=== PATIENT | female | born 1970 | race Caucasian/White ===

== ENCOUNTER 2018-02-13 23:10 | Emergency (ER) | payer MEDICAID ==
[~2018-02-13] VITALS: Ht 170.2 cm; Wt 85.4 kg
[2018-02-13 23:17] VITALS: BP 131/94
[2018-02-13] MEDS ORDERED: [UNRECOGNIZED DRUG - REMARK] (23:35)
[2018-02-13] MEDS ORDERED: CLON-528 PO (23:35)
[2018-02-14] MEDS ORDERED: CEPH250T PO (00:11)
[2018-02-14] MEDS ORDERED: DOXY100C43 PO (00:11)
[2018-02-14] MEDS: DOXYCYCLINE 100MG CAPSULE PO STA (00:31)
[2018-02-14] MEDS: ondansetron 4mg rapidly disintigrating tab PO ONE (00:31)
[2018-02-14] MEDS: cephalexin 250mg capsule PO ONE (00:31)
== END 2018-02-14 00:33 | disposition home or self-care (01) ==
LOC: ER 23:11
DX: S61.552A Open bite of left wrist, initial encounter (principal); S61.532A Puncture wound without foreign body of left wrist, initial encounter; L03.114 Cellulitis of left upper limb; F15.90 Other stimulant use, unspecified, uncomplicated; Z90.49 Acquired absence of other specified parts of digestive tract; Z98.84 Bariatric surgery status; W54.0XXA Bitten by dog, initial encounter; Y93.89 Activity, other specified; Y92.89 Other specified places as the place of occurrence of the external cause; Y99.8 Other external cause status
CPT/HCPCS: 73110; 99284

== ENCOUNTER 2018-07-23 13:11 | Emergency (ER) | payer MEDICAID ==
[~2018-07-23] VITALS: Ht 170.2 cm; Wt 86.4 kg
[~2018-07-23 13:11] MED LIST: CEPH250T PO; CLON-528 PO; [UNRECOGNIZED DRUG - REMARK]
[2018-07-23 13:12] VITALS: BP 130/85
== END 2018-07-23 13:37 | disposition home or self-care (01) ==
LOC: ER 13:11
DX: M25.561 Pain in right knee (principal); F15.90 Other stimulant use, unspecified, uncomplicated; Z90.49 Acquired absence of other specified parts of digestive tract; Z98.51 Tubal ligation status; Z79.899 Other long term (current) drug therapy
CPT/HCPCS: 99284

== ENCOUNTER 2018-12-04 14:23 | Emergency (ER) | payer MEDICAID ==
[~2018-12-04] VITALS: Ht 170.2 cm; Wt 93.2 kg
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
[2018-12-04 15:28] LABS: CLARITY,URINE SLIGHTLY CLOUDY (Clear); COLOR,URINE YELLOW (Yellow); GLUCOSE, URINE NEGATIVE (Neg); KETONES,URINE TRACE mg/dl (Neg); LEUKOCYTE ESTERASE ,URINE SMALL (Neg); NITRITES, URINE NEGATIVE (Neg); OCCULT BLOOD,URINE NEGATIVE (Neg); PH,URINE 5.5 (4.8-8.0); PROTEIN,URINE NEGATIVE (Neg); UROBILINOGEN,URINE 0.2 E.U/dL (0.2-1.0)
[2018-12-04 15:29] LABS: UA COLLECTION TYPE VOIDED
[2018-12-04] MEDS ORDERED: CEPH250T PO (15:34)
[2018-12-04 15:40] LABS: WBC,URINE TNTC /HPF (0-4)
[2018-12-04 15:41] LABS: BACTERIA,URINE FEW /HPF (Neg); MUCUS STRANDS FEW /LPF (Neg); RBC,URINE NONE SEEN /HPF (0-2); SQUAMOUS EPITHELIAL CELL,UR FEW /LPF (FEW)
[2018-12-04 15:49] VITALS: BP 90/51
== END 2018-12-04 15:51 | disposition home or self-care (01) ==
LOC: ER 14:23
DX: N39.0 Urinary tract infection, site not specified (principal); F10.99 Alcohol use, unspecified with unspecified alcohol-induced disorder; F15.90 Other stimulant use, unspecified, uncomplicated; Z90.49 Acquired absence of other specified parts of digestive tract; Z98.84 Bariatric surgery status; Z79.899 Other long term (current) drug therapy; Y90.9 Presence of alcohol in blood, level not specified
CPT/HCPCS: 81001; 87088; 99283

== ENCOUNTER 2018-12-31 16:35 | Emergency (ER) | payer MEDICAID ==
[~2018-12-31] VITALS: Ht 172.7 cm; Wt 90.0 kg
[2018-12-31] MEDS ORDERED: methylPREDNISolone sod succ 125mg/2ml vial IV ONE (16:50)
[2018-12-31] MEDS ORDERED: normal saline 1000ML IV soln IVB ONE (16:50)
[2018-12-31] MEDS ORDERED: ipratropium/albuterol 3ml nebule NEB ONE (16:50)
[2018-12-31 17:09] LABS: BASOPHILS % (AUTO) 0.6 % (0-1); EOSINOPHILS # (AUTO) 0.2 X10'3 (0-0.9); EOSINOPHILS % (AUTO) 2.6 % (0-6); HEMATOCRIT 26.1 % (35.0-45.0); HEMOGLOBIN 8.4 g/dl (12.0-16.0); LYMPHOCYTES # (AUTO) 1.8 X10'3 (1.1-4.8); LYMPHOCYTES % (AUTO) 30.3 % (21-51); MEAN CORPUSCULAR HEMOGLOBIN 21.7 PG (27.0-31.0); MEAN CORPUSCULAR HGB CONC 32.1 g/dL (33.0-36.5); MEAN CORPUSCULAR VOLUME 67.8 FL (78-98); MEAN PLATELET VOLUME 7.5 FL (7.4-10.4); MONOCYTES # (AUTO) 0.6 X10'3 (0-0.9); MONOCYTES % (AUTO) 10.2 % (2-12); NEUTROPHILS # (AUTO) 3.4 X10'3 (1.8-7.7); NEUTROPHILS % (AUTO) 56.3 % (42-75); PLATELET COUNT 248 X10'3 (140-440); RED BLOOD COUNT 3.86 X10'6 (4.20-5.60); RED CELL DISTRIBUTION WIDTH 19.1 % (11.5-14.5)
[2018-12-31 17:24] LABS: ALANINE AMINOTRANSFERASE 31 U/L (12-78); ALBUMIN/GLOBULIN RATIO 0.7 (1.1-1.5); ALKALINE PHOSPHATASE 89 IU/L (46-116); ANION GAP 7 (8-16); ASPARTATE AMINO TRANSFERASE 24 U/L (10-37); BILIRUBIN,TOTAL 0.3 MG/DL (0.1-1.0); BLOOD UREA NITROGEN 10 MG/DL (7-18); BUN/CREATININE RATIO 10.8 (6.6-38.0); CALCIUM 8.7 MG/DL (8.5-10.1); CHLORIDE 106 MMOL/L (99-107); CREATININE 0.93 MG/DL (0.40-0.90); GLUCOSE 88 MG/DL (70-104); POTASSIUM 4.2 MMOL/L (3.5-5.1); SODIUM 141 MMOL/L (135-145); TOTAL CARBON DIOXIDE 27.9 MMOL/L (24-32); TOTAL PROTEIN 7.2 G/DL (6.4-8.2); eGFR 64 ML/MIN
[2018-12-31 17:28] LABS: PLATELET ESTIMATE NORMAL
[2018-12-31 17:29] LABS: ANISOCYTOSIS 2+; HYPOCHROMASIA 1+; LARGE PLATELETS FEW; MICROCYTOSIS 2+; POLYCHROMASIA FEW
[2018-12-31] MEDS ORDERED: ALBU6.7H9 INH (17:30)
[2018-12-31] MEDS ORDERED: PRED20TA PO (17:30)
[2018-12-31] MEDS ORDERED: GUAI120015 PO (17:30)
[2018-12-31] MEDS ORDERED: AMOX-419 PO (17:30)
[2018-12-31 18:18] VITALS: BP 131/73
== END 2018-12-31 18:54 | disposition home or self-care (01) ==
LOC: ER 16:35
DX: J40 Bronchitis, not specified as acute or chronic (principal); D64.89 Other specified anemias; F15.90 Other stimulant use, unspecified, uncomplicated; F17.200 Nicotine dependence, unspecified, uncomplicated; Z90.49 Acquired absence of other specified parts of digestive tract; Z87.01 Personal history of pneumonia (recurrent); Z98.84 Bariatric surgery status; Z79.899 Other long term (current) drug therapy
CPT/HCPCS: 36415; 71045; 80053; 82948; 85025; 93005; 94640; 94760; 96374; 99284; J2930; J7030

== ENCOUNTER 2019-09-05 09:06 | Emergency (ER) | payer MEDICAID ==
[~2019-09-05] VITALS: Ht 170.2 cm; Wt 104.5 kg
[~2019-09-05 09:06] MED LIST changes: +ALBU6.7H9 INH; -CEPH250T PO; +GUAI120015 PO
[2019-09-05 10:10] LABS: BASOPHILS % (AUTO) 0.6 % (0-1); EOSINOPHILS # (AUTO) 0.1 X10'3 (0-0.9); EOSINOPHILS % (AUTO) 2.3 % (0-6); HEMATOCRIT 25.5 % (35.0-45.0); HEMOGLOBIN 7.8 g/dl (12.0-16.0); LYMPHOCYTES # (AUTO) 1.8 X10'3 (1.1-4.8); MEAN CORPUSCULAR HEMOGLOBIN 19.8 PG (27.0-31.0); MEAN CORPUSCULAR HGB CONC 30.5 g/dL (33.0-36.5); MEAN CORPUSCULAR VOLUME 64.8 FL (78-98); MEAN PLATELET VOLUME 8.4 FL (7.4-10.4); MONOCYTES # (AUTO) 0.6 X10'3 (0-0.9); MONOCYTES % (AUTO) 10.1 % (2-12); NEUTROPHILS # (AUTO) 3.3 X10'3 (1.8-7.7); PLATELET COUNT 222 X10'3 (140-440); RED BLOOD COUNT 3.93 X10'6 (4.20-5.60); RED CELL DISTRIBUTION WIDTH 19.5 % (11.5-14.5); WHITE BLOOD COUNT 5.9 X10'3 (4.5-11.0)
[2019-09-05 10:12] LABS: CLARITY,URINE SLIGHTLY CLOUDY (Clear); COLOR,URINE YELLOW (Yellow); GLUCOSE, URINE NEGATIVE (Neg); KETONES,URINE NEGATIVE (Neg); LEUKOCYTE ESTERASE ,URINE NEGATIVE (Neg); NITRITES, URINE NEGATIVE (Neg); OCCULT BLOOD,URINE NEGATIVE (Neg); PH,URINE 6.5 (4.8-8.0); PROTEIN,URINE NEGATIVE (Neg)
[2019-09-05 10:16] LABS: UA COLLECTION TYPE CLN CATCH MIDSTREAM
[2019-09-05 10:17] LABS: MUCUS STRANDS MODERATE /LPF (Neg); SQUAMOUS EPITHELIAL CELL,UR MODERATE /LPF (FEW)
[2019-09-05 10:18] LABS: BACTERIA,URINE 1+ /HPF (Neg)
[2019-09-05 10:19] LABS: RBC,URINE 0-2 /HPF (0-2); WBC,URINE 0-4 /HPF (0-4)
[2019-09-05 10:23] LABS: ALANINE AMINOTRANSFERASE 24 U/L (12-78); ALBUMIN 2.8 G/DL (3.4-5.0); ALBUMIN/GLOBULIN RATIO 0.7 (1.1-1.5); ALKALINE PHOSPHATASE 86 IU/L (46-116); ANION GAP 7 (8-16); ASPARTATE AMINO TRANSFERASE 21 U/L (10-37); BILIRUBIN,TOTAL 0.2 MG/DL (0.1-1.0); BLOOD UREA NITROGEN 19 MG/DL (7-18); BUN/CREATININE RATIO 24.4 (6.6-38.0); CALCIUM 8.3 MG/DL (8.5-10.1); CHLORIDE 110 MMOL/L (99-107); CREATININE 0.78 MG/DL (0.40-0.90); GLUCOSE 81 MG/DL (70-104); POTASSIUM 3.9 MMOL/L (3.5-5.1); SODIUM 143 MMOL/L (135-145); TOTAL CARBON DIOXIDE 26.3 MMOL/L (24-32); TOTAL PROTEIN 6.9 G/DL (6.4-8.2); eGFR 78 ML/MIN
[2019-09-05 10:36] LABS: ANISOCYTOSIS 2+; MICROCYTOSIS 2+; PLATELET ESTIMATE NORMAL; POLYCHROMASIA 1+
[2019-09-05] MEDS: acetaminophen 325mg tablet PO ONE ×2 (10:36→11:03)
[2019-09-05] MEDS ORDERED: FURO-150 PO (10:53)
[2019-09-05] MEDS ORDERED: POTA10TA19 PO (10:53)
[2019-09-05 11:15] VITALS: BP 122/80
== END 2019-09-05 11:18 | disposition home or self-care (01) ==
LOC: ER 09:07
DX: R60.9 Edema, unspecified (principal); M79.10 Myalgia, unspecified site; M79.605 Pain in left leg; M79.604 Pain in right leg; J44.9 Chronic obstructive pulmonary disease, unspecified; F15.90 Other stimulant use, unspecified, uncomplicated; Z90.49 Acquired absence of other specified parts of digestive tract; Z98.0 Intestinal bypass and anastomosis status; Z79.899 Other long term (current) drug therapy
CPT/HCPCS: 36415; 71045; 80053; 81001; 83880; 84484; 85025; 93005; 99285

== ENCOUNTER 2021-04-26 15:23 | Inpatient (IN) | payer MEDICAID ==
[~2021-04-26] VITALS: Ht 170.2 cm; Wt 84.9 kg
--- NOTE | 2021-04-26 16:50 | NUR ---
ADMITS TO TAKING METH LAST TUESDAY NIGHT
--- NOTE | 2021-04-26 16:59 | NUR ---
PT STATES, "MY CLOTHES ARE FIFTHY FROM HIDING IN THE BUSHES FROM PEOPLE CHASING ME. PT HAVING FLIGHT OF IDEAS, AND TALKING EXTREMELY FAST."
--- NOTE | 2021-04-26 17:10 | NUR ---
PT STATES, "ILL SAY ANYTHING TO STAY HERE"
[2021-04-26 18:24] LABS: BASOPHILS % (AUTO) 0.3 % (0-1); EOSINOPHILS # (AUTO) 0.1 X10'3 (0-0.9); EOSINOPHILS % (AUTO) 1.2 % (0-6); HEMATOCRIT 28.9 % (35.0-45.0); HEMOGLOBIN 9.3 g/dl (12.0-16.0); LYMPHOCYTES # (AUTO) 1.6 X10'3 (1.1-4.8); LYMPHOCYTES % (AUTO) 25.8 % (21-51); MEAN CORPUSCULAR HEMOGLOBIN 21.9 PG (27.0-31.0); MEAN CORPUSCULAR HGB CONC 32.1 g/dL (33.0-36.5); MEAN CORPUSCULAR VOLUME 68.2 FL (78-98); MEAN PLATELET VOLUME 7.8 FL (7.4-10.4); MONOCYTES # (AUTO) 0.6 X10'3 (0-0.9); MONOCYTES % (AUTO) 9.4 % (2-12); NEUTROPHILS % (AUTO) 63.3 % (42-75); PLATELET COUNT 252 X10'3 (140-440); RED BLOOD COUNT 4.23 X10'6 (4.20-5.60); RED CELL DISTRIBUTION WIDTH 19.3 % (11.5-14.5); WHITE BLOOD COUNT 6.2 X10'3 (4.5-11.0)
[2021-04-26 18:32] LABS: ALANINE AMINOTRANSFERASE 33 U/L (12-78); ALBUMIN 3.2 G/DL (3.4-5.0); ALBUMIN/GLOBULIN RATIO 0.9 (1.1-1.5); ALKALINE PHOSPHATASE 74 IU/L (46-116); ANION GAP 8 (8-16); ASPARTATE AMINO TRANSFERASE 26 U/L (10-37); BILIRUBIN,TOTAL 0.3 MG/DL (0.1-1.0); BLOOD UREA NITROGEN 14 MG/DL (7-18); BUN/CREATININE RATIO 16.9 (6.6-38.0); CALCIUM 8.9 MG/DL (8.5-10.1); CHLORIDE 104 MMOL/L (99-107); CREATININE 0.83 MG/DL (0.40-0.90); GLUCOSE 79 MG/DL (70-104); POTASSIUM 3.4 MMOL/L (3.5-5.1); SODIUM 138 MMOL/L (135-145); TOTAL CARBON DIOXIDE 26.3 MMOL/L (24-32); TOTAL PROTEIN 6.8 G/DL (6.4-8.2); eGFR 72 ML/MIN
[2021-04-26 18:41] LABS: ETHANOL < 0.010 GM/DL (0.0-0.010)
[2021-04-26] MEDS ORDERED: potassium Cl 20 mEq SR tablet PO STA (18:42)
[2021-04-26 19:10] LABS: PLATELET ESTIMATE NORMAL
[2021-04-26 19:11] LABS: ANISOCYTOSIS 2+; ELLIPTOCYTES FEW; MICROCYTOSIS 2+; POLYCHROMASIA FEW
[2021-04-26 19:28] LABS: URINE AMPHETAMINE SCREEN POSITIVE (Neg); URINE BARBITUATE SCREEN NEGATIVE (Neg); URINE BENZODIAZEPINES SCREEN POSITIVE (Neg); URINE CANNABINOID SCREEN POSITIVE (Neg); URINE COCAINE SCREEN NEGATIVE (Neg); URINE METHADONE SCREEN NEGATIVE (Neg); URINE OPIATE SCREEN NEGATIVE (Neg); URINE PHENCYCLIDINE SCREEN NEGATIVE (Neg)
--- NOTE | 2021-04-26 19:37 | NUR ---
The patient moved to bed 23 from the main ER. She is accepting redirection but she is very disorganized with fast pressured speech. She has significant psychomotor agitation. She is a very poor historian but she is making statements about coming from [facility] in her car which is now broken down somewhere in [facility]. She reports recent meth use, recently being in [facility] and a past diagnosis of PTSD. 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
[2021-04-26] MEDS ORDERED: LORazepam 1 MG tablet PO ONE (20:20)
[2021-04-26] MEDS ORDERED: OLANZapine 2.5MG tablet PO ONE (20:20)
[2021-04-26] MEDS ORDERED: diphenhydrAMINE 25mg capsule PO ONE (20:20)
--- NOTE | 2021-04-26 20:42 | NUR ---
Patient's daughter, Angela,
--- NOTE | 2021-04-26 22:38 | NUR ---
The patient appears to be sleeping
--- NOTE | 2021-04-27 00:43 | NUR ---
The patient appears to be sleeping
--- NOTE | 2021-04-27 02:02 | NUR ---
The patient appears to be sleeping
--- NOTE | 2021-04-27 04:46 | NUR ---
The patient appears to be sleeping
--- NOTE | 2021-04-27 05:32 | NUR ---
Packet sent to [facility]
--- NOTE | 2021-04-27 07:11 | NUR ---
Pt. appears to be sleeping, no s/sx of distress noted.
--- NOTE | 2021-04-27 09:11 | NUR ---
Pt. awake ambulating to the bathroom, mumbling to herself, no distress noted.
--- NOTE | 2021-04-27 11:11 | NUR ---
Pt. awake speaking to [facility] at the bedside, she is upset crying and bilateral feet bouncing.
--- NOTE | 2021-04-27 13:10 | NUR ---
Pt. appears to be sleeping, no distress noted.
[2021-04-27] MEDS ORDERED: acetaminophen 325mg tablet PO PRN (15:30)
[2021-04-27] MEDS ORDERED: NICOTINE POLACRILEX 2 MG LOZENGE BC PRN (15:30)
[2021-04-27] MEDS ORDERED: nicotine 14mg patch - 24hr TD ONE (15:30)
[2021-04-27] MEDS ORDERED: loperamide 2mg capsule PO PRN (15:30)
[2021-04-27] MEDS ORDERED: magnesium hydroxide 30ml (MOM) UD suspension PO PRN (15:30)
--- NOTE | 2021-04-27 15:30 | NUR ---
Pt. discharged to [facility] ar 1530 via WC, all belongings were taken with pt.
--- NOTE | 2021-04-27 15:35 | NUR ---
inspector Note: Patient admitted from [facility] ED for DTS. Patient had custody of her nephew since , a 17 month old. CPS took the baby away from her last week. Patient went on a meth binge after her loss. Patient feeling suicidal and thought of jumping in front of a train. Patient was tearful every time she spoke of her nephew and several times during the admission process.
[2021-04-27 16:54] VITALS: BP 123/60
[2021-04-27 20:22] VITALS: BP 96/59
[2021-04-27] MEDS ORDERED: traZODone 50mg tablet PO PRN (21:25)
[2021-04-27] MEDS ORDERED: LORazepam 0.5 MG tablet PO PRN (21:25)
--- NOTE | 2021-04-28 05:07 | NUR ---
Nursing Progress Note Legal hold: 5150 Client on involuntary status for GD Report received from Joseph RN with use of SBAR Why they are here: Client placed on 5150 hold as result of mental health disorder. She stated, "if I leave here, I'm going to on way or another, or I'll just run into the street. Assessment What has happened this shift: The patient was asleep at shift change. She has remained in her room all night. Attempted 1:1, but patient declines, stating she just needs to sleep right now. Patient had no scheduled medications, and declined snacks. SI/HI: Denies A/VH: Denies Sleep: See sleep hours ADL's: Independent Group attendance: No Were Meds taken: None scheduled Any med S/E: None observed or reported Mental Status Exam Appearance: Disheveled, but casual in scrubs Eye contact: Good Behavior: Guarded, withdrawn, paranoid. Speech: Clear, audible, Mood: Depressed Affect: Congruent Thought process: disorganized, delusional Thought Content: Wanting to go home Cognition: A/O X 3 Insight: Poor Judgment: Poor Interventions PRN's used: None Therapeutic interventions: 1:1 assessment, therapeutic communication, active listening, medication administration/education/monitoring, provided simple, clear directions, behavior monitoring and intervention; frequent reality orientation, distraction, and redirection, positive reinforcement, and Q 15 minute safety checks. Restraints/seclusion/emergency medication: None Justification of Continued Inpatient Treatment: Patient will need medication adjustment and monitoring in a safe and therapeutic environment.
[2021-04-28 08:00] VITALS: BP 160/80
[2021-04-28] MEDS: nicotine 14mg patch - 24hr TD SCH (08:56)
[2021-04-28] MEDS ORDERED: NO HOME MEDS (11:46)
[2021-04-28 13:55] LABS: CHOL/HDL RATIO 2.9 (0.00-4.99); CHOLESTEROL 186 MG/DL (0-200); HDL CHOLESTEROL 64 MG/DL (35-60); LDL CHOLESTEROL 91 MG/DL (50-100); TRIGLYCERIDES 94 MG/DL (20-135)
[2021-04-28 14:16] LABS: HEMOGLOBIN A1C 5.9 % (4.5-6.2)
--- NOTE | 2021-04-28 17:31 | NUR ---
Nursing Progress Note Legal hold: 5150 Client on involuntary status for GD Report received from RN with use of SBAR Why they are here: Client placed on 5150 hold as result of mental health disorder. She stated, "if I leave here, I'm going to on way or another, or I'll just run into the street. Assessment What has happened this shift: Received Pt in bed sleeping w/o distress at the beginning of the shift. Pt woke and cooperative with vitals. Pt returned to sleep and woke for breakfast and ate well. Pt took only AM med which was Nicotine patch. Pt reports depression maybe I need an antidepressant. Pt stated I just want to sleep. Pt ate lunch well and met with Dr Jansen. Pt spent most of afternoon in bed. SI/HI: Denies A/VH: Denies Sleep: Napped ADL's: Independent Group attendance: No Were Meds taken: Yes Any med S/E: None observed or reported Mental Status Exam Appearance: Casual in scrubs Eye contact: Good Behavior: Guarded, withdrawn Speech: Clear, coherent Mood: Depressed Affect: Congruent Thought process: Thought Content: Going home Cognition: A/O X 3 Insight: Poor Judgment: Poor Interventions PRN's used: None Therapeutic interventions: 1:1 assessment, therapeutic communication, active listening, medication administration/education/monitoring, provided simple, clear directions, behavior monitoring and intervention; frequent reality orientation, distraction, and redirection, positive reinforcement, and Q 15 minute safety checks. Restraints/seclusion/emergency medication: None Justification of Continued Inpatient Treatment: Patient will need medication adjustment and monitoring in a safe and therapeutic environment.
[2021-04-28] MEDS: OLANZapine 2.5MG tablet PO SCH (20:10)
[2021-04-28 20:56] VITALS: BP 114/58
[2021-04-28] MEDS: LORazepam 0.5 MG tablet PO PRN (21:21)
--- NOTE | 2021-04-29 03:31 | NUR ---
Nursing Progress Note Legal hold: 5150 Client on involuntary status for GD Report received from TEODORA Barkley with use of SBAR Why they are here: Client placed on 5150 hold as result of mental health disorder. She stated, "if I leave here, I'm going to one way or another, or I'll just run into the street. Assessment What has happened this shift: Patient was napping at shift change. She's irritable and just wants to sleep. Patient asks for Milk, and it was provided. She was asked, but declined to get up and talk or go to snack. Patient asked about her medications, and told Doctor was starting her on Zyprexa. She was fine with it and took her HS meds. Patient has been observed sleeping peacefully all night. SI/HI: Denies A/VH: Denies Sleep: See sleep hours ADL's: Independent Group attendance: No Were Meds taken: Yes Any med S/E: None observed or reported Mental Status Exam Appearance: Disheveled, but casual in scrubs Eye contact: Good Behavior: Guarded, withdrawn, paranoid. Speech: Clear, audible, Mood: Depressed Affect: Congruent Thought process: disorganized, delusional Thought Content: Wanting to go home Cognition: A/O X 3 Insight: Poor Judgment: Poor Interventions PRN's used: None Therapeutic interventions: 1:1 assessment, therapeutic communication, active listening, medication administration/education/monitoring, provided simple, clear directions, behavior monitoring and intervention; frequent reality orientation, distraction, and redirection, positive reinforcement, and Q 15 minute safety checks. Restraints/seclusion/emergency medication: None Justification of Continued Inpatient Treatment: Patient will need medication adjustment and monitoring in a safe and therapeutic environment.
[2021-04-29 08:00] VITALS: BP 96/47
[2021-04-29] MEDS: nicotine 14mg patch - 24hr TD SCH (08:25)
--- NOTE | 2021-04-29 09:00 | NUR ---
Fleet Administrator met w/pt @ bedside and engaged her in completing her bio-psychosocial assessment. Pt appears to be lethargic and was limited w/response to questions however, she does go off topic quite a bit appears to blame others for CPS removal of her nephew. Pt refused to sign DOROTHY & # 9. Clinician will attempt to engage pt in SBIRT tomorrow. Lashay Harry lCSW Addendum: 04/30/21 at 0903 by Lashay Harry SS Amended: Links added.
[2021-04-29 14:15] VITALS: BP 132/81
--- NOTE | 2021-04-29 17:22 | NUR ---
Nursing Progress Note: Beverly NgoCourtney Legal hold: 5150 Client on involuntary status for GD Report received from TEODORA Ramos with use of SBAR Why they are here: Client placed on 5150 hold as result of mental health disorder. She stated, "if I leave here, I'm going to one way or another, or I'll just run into the street. Assessment What has happened this shift: Received Pt sleeping, woke to take her nicotine patch, and 1:1 assessment completed at the bedside. Pt. denies SI, HI, and A/VH. She reports she was admitted because anxiety, addiction, being unsafe out there Discussed her plans for discharge and she stated I dont have a plan, I want to get out of [facility]. Pt. did not get OOB for breakfast, she reported Im too tired pt. was encouraged to drink extra fluids d/t hypotension: provider notified. Pt. was rechecked and BP WNL. Pt. was encouraged to participate in group, but refused. Pt. did get OOB and eat lunch. SI/HI: Denies A/VH: Denies Sleep: Napped all shift intermittently ADL's: Independent Group attendance: No Were Meds taken: Yes Any med S/E: None observed or reported Mental Status Exam Appearance: Casual in scrubs Eye contact: Good Behavior: Guarded, withdrawn Speech: Hyper verbal Mood: Depressed Affect: Congruent Thought process: Disorganized Thought Content: Going home Cognition: A/O X 3 Insight: Poor Judgment: Poor Interventions PRN's used: Ativan Therapeutic interventions: 1:1 assessment, therapeutic communication, active listening, medication administration/education/monitoring, provided simple, clear directions, behavior monitoring and intervention; frequent reality orientation, distraction, and redirection, positive reinforcement, and Q 15 minute safety checks. Restraints/seclusion/emergency medication: None Justification of Continued Inpatient Treatment: Patient will need medication adjustment and monitoring in a safe and therapeutic environment.
[2021-04-29] MEDS: LORazepam 0.5 MG tablet PO PRN (17:51)
[2021-04-29] MEDS: mag hydrox/Alum hydrox/simeth 30ml oral suspension PO PRN (18:14)
[2021-04-29 20:00] VITALS: BP 117/62
[2021-04-29] MEDS: OLANZapine 2.5MG tablet PO SCH (20:19)
--- NOTE | 2021-04-29 23:44 | NUR ---
Nursing Progress Note: Beverly Fazal Legal hold: 5150 Client on involuntary status for GD Report received from Rubia ARAIZA with use of SBAR Why they are here: Client placed on 5150 hold as result of mental health disorder. She stated, "if I leave here, I'm going to one way or another, or I'll just run into the street. Assessment What has happened this shift: Received Pt lying in bed resting. 1:1 assessment completed at the bedside. Pt. denies SI, HI, and A/VH. Pt states that her depression is a /. Pt did not get out of bed all evening, isolates, flat affect, and didnt want to engage in any conversation. Pt medication compliant. SI/HI: Denies A/VH: Denies Sleep: ADL's: Independent Group attendance: No Were Meds taken: Yes Any med S/E: None observed or reported Mental Status Exam Appearance: Casual in scrubs Eye contact: Good Behavior: Guarded, withdrawn Speech: Hyper verbal Mood: Depressed Affect: Congruent Thought process: Disorganized Thought Content: Depressed Cognition: A/O X 3 Insight: Poor Judgment: Poor Interventions PRN's used: Therapeutic interventions: 1:1 assessment, therapeutic communication, active listening, medication administration/education/monitoring, provided simple, clear directions, behavior monitoring and intervention; frequent reality orientation, distraction, and redirection, positive reinforcement, and Q 15 minute safety checks. Restraints/seclusion/emergency medication: None Justification of Continued Inpatient Treatment: Patient will need medication adjustment and monitoring in a safe and therapeutic environment.
[2021-04-30 07:24] VITALS: BP 122/66
[2021-04-30] MEDS: nicotine 14mg patch - 24hr TD SCH (10:33)
[2021-04-30] MEDS: acetaminophen 325mg tablet PO PRN (10:34)
[2021-04-30] MEDS: LORazepam 0.5 MG tablet PO PRN ×2 (10:43→17:43)
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
[2021-04-30 19:23] VITALS: BP 101/50
[2021-04-30] MEDS: OLANZapine 2.5MG tablet PO SCH (20:22)
--- NOTE | 2021-05-01 04:51 | NUR ---
Nursing Progress Note: Legal hold: 5250 Client on involuntary status for DTS Report received from nurse with use of SBAR: TEODORA Roth Why are they here: Client placed on 5150 hold as result of mental health disorder. She stated, "if I leave here, I'm going to one way or another, or I'll just run into the street. Assessment What has happened this shift: Patient was observed sleeping in bed at beginning of shift. Patient self isolated in room all shift except to get up and ask for snacks. Patient took all medication without difficulty and then returned back to sleep. S/I, H/I: denies A/VH: Denies, does not appear internally preoccupied Sleep: See sleep assessment ADL's: Requires encouragement Group attendance: No Were meds taken: Yes Any med S/E: None Mental Status Exam Appearance: older woman dressed in green unit scrubs Eye contact: Poor Behavior: Cooperative, fatigued, anxious, tearful, irritable, guarded, and isolative Speech: Pressured and hyperverbal, difficult to understand at times Mood: Anxious and slightly irritable Affect: Labile Thought process: Disorganized Thought Content: Paranoid delusions Cognition: A&O X3 (not to reason here) Insight: Poor Judgment: Poor Interventions PRN's used: Therapeutic interventions: Introduced self and established rapport, maintained a safe and therapeutic environment, ensured contract for safety, provided clear and simple instruction, encouraged participation on the unit, monitored behaviors and need for intervention, and maintained Q 15min safety checks. Restraints/seclusion/emergency medication: N/A Justification of Continued Inpatient Treatment: Pt. requires medication adjustments and a safe and supportive environment.
[2021-05-01] MEDS: nicotine 14mg patch - 24hr TD SCH (07:55)
[2021-05-01 08:44] VITALS: BP 113/58
[2021-05-01] MEDS: LORazepam 0.5 MG tablet PO PRN (11:52)
[2021-05-01] MEDS: OLANZAPINE 5 MG TABLET PO PRN (11:56)
--- NOTE | 2021-05-01 15:42 | NUR ---
Initial: Pt admit for DTS. Currently on a regular diet and eating well with 75-100% PO intake throughout LOS with the exception of refusal of two meals. Noted h/o gastric bypass surgery, pt would benefit from MVM with iron. LBM 05/01. No nutrition intervention implemented at this time. Will continue to follow. Recommendations: 1) Continue regular diet 2) Consider MVM with iron with physician approval in view of gastric bypass hx 3) Bowel care PRN 4) Weekly scaled weights Addendum: 05/01/21 at [address] Amended: Links added.
[2021-05-01] MEDS ORDERED: hydrOXYzine 25 MG tablet PO PRN (16:45)
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
[2021-05-01 19:00] VITALS: BP 106/61
[2021-05-01] MEDS: OLANZapine 2.5MG tablet PO SCH (19:50)
[2021-05-01] MEDS: acetaminophen 325mg tablet PO PRN (19:51)
--- NOTE | 2021-05-02 03:18 | NUR ---
Nursing Progress Note: Andres Legal hold: 5250 Client on involuntary status for DTS Report received from nurse with use of SBAR: Gonzalez ARAIZA Why are they here: Client placed on 5150 hold as result of mental health disorder. She stated, "if I leave here, I'm going to one way or another, or I'll just run into the street. Assessment What has happened this shift: Patient received lying in bed resting. Pt states she is OK and states she has depression and anxiety. Pt rated her anxiety level 6/10 and was given 100MG Atarax with good effect. Pt requested Tylenol for mild ankle pain. Pt denied SI/AH. Pt up for snacks and took HS medications without issue. PT went back to bed after snack time and went to sleep. S/I, H/I: Denies A/VH: Denies, does not appear internally preoccupied Sleep: ADL's: Requires encouragement Group attendance: No Were meds taken: Yes Any med S/E: None Mental Status Exam Appearance: Hair and clothing disheveled r/t laying in bed Eye contact: Poor Behavior: Cooperative, fatigued, anxious, and isolative Speech: Pressured and hyperverbal, difficult to understand at times Mood: Anxious Affect: Labile Thought process: Disorganized Thought Content: Stressed about her situation Cognition: A&O X3 (not to reason here) Insight: Poor Judgment: Poor Interventions PRN's used: Tylenol Therapeutic interventions: Introduced self and established rapport, maintained a safe and therapeutic environment, ensured contract for safety, provided clear and simple instruction, encouraged participation on the unit, monitored behaviors and need for intervention, and maintained Q 15min safety checks. Restraints/seclusion/emergency medication: N/A Justification of Continued Inpatient Treatment: Pt. requires medication adjustments and a safe and supportive environment.
--- NOTE | 2021-05-02 04:24 | NUR ---
Patient needs to be seen by hospitalist.
[2021-05-02 08:04] VITALS: BP 136/79
[2021-05-02] MEDS: nicotine 14mg patch - 24hr TD SCH (08:36)
[2021-05-02] MEDS: OLANZAPINE 5 MG TABLET PO PRN (10:28)
[2021-05-02] MEDS ORDERED: LORazepam 1 MG tablet PO ONE (11:10)
--- NOTE | 2021-05-02 12:43 | NUR ---
Nursing Progress Note: Legal hold: 5250 Client on involuntary status for DTS Report received from nurse with use of SBAR: Carina Mc RN Why are they here: Client placed on 5150 hold as result of mental health disorder. She stated, "if I leave here, I'm going to one way or another, or I'll just run into the street. Assessment What has happened this shift: Patient received sleeping in bed at change of shift. She was up for breakfast in the dayroom with the others. Pt is medication compliant. She became tearful in the AM pacing the floor and requesting Ativan. notified. Pt agreed to take Ativan 2mg and Olanzapine 5mg PRN agitation and anxiety. Medications given with some relief for the pt. She reports less restlessness and "less racing thoughts." Pt reports Atrax she took last night caused her to have "restless leg syndrome." Patient continues to present as fatigued and isolative to her room throughout the day. She continues to be distraught and tearful over the loss of her sister's child to CPS. S/I, H/I: Denies A/VH: Denies, does not appear internally preoccupied Sleep: Slept intermittently on this shift. ADL's: Requires encouragement Group attendance: N/A Were Meds taken: Yes Any med S/E: None Mental Status Exam Appearance: Hair and clothing disheveled r/t laying in bed Eye contact: Poor Behavior: Cooperative, fatigued, anxious, tearful, and isolative Speech: Pressured and hyperverbal, difficult to understand at times Mood: Anxious and slightly irritable Affect: Labile Thought process: Disorganized Thought Content: Paranoid delusions. Racing thoughts about her family. Cognition: A&O X3 (not to reason here) Insight: Poor Judgment: Poor Interventions PRN's used: Ativan x1, Zyprexa x1 Therapeutic interventions: Provided 1:1 assessment with therapeutic communication and active listening, medication administration/education/monitoring, provided clear and simple instruction, encouraged participation on the unit, monitored behaviors and need for intervention, and maintained Q 15min safety checks. Restraints/seclusion/emergency medication: N/A Justification of Continued Inpatient Treatment: Pt. requires medication adjustments and a safe and supportive environment.
--- NOTE | 2021-05-02 18:20 | NUR ---
Dr. Patel notified that there is not a hospitalist note in the chart from admit.
[2021-05-02 19:24] VITALS: BP 91/59
[2021-05-02] MEDS: OLANZapine 2.5MG tablet PO SCH (20:40)
--- NOTE | 2021-05-03 01:40 | NUR ---
Nursing Progress Note: Legal hold: 5250 Client on involuntary status for DTS Report received from nurse with use of SBAR: Gonzalez ARAIZA Why are they here: Client placed on 5150 hold as result of mental health disorder. She stated, "if I leave here, I'm going to one way or another, or I'll just run into the street. Assessment What has happened this shift: Patient isolates to her room the entirety of the shift. She stays laying in bed during 1:1 assessment and medication administration. Pt is med compliant and does not request anything. She denies SI/HI/AH/VH at this time. Pt denied SI/AH. Pt is not very talkative and minimal in her responses. She has a flat affect and fair eye contact. Pt still needs to be seen by a hospitalist. S/I, H/I: Denies A/VH: Denies, does not appear internally preoccupied Sleep: see sleep assessment ADL's: Requires encouragement Group attendance: No Were meds taken: Yes Any med S/E: None Mental Status Exam Appearance: Hair and clothing disheveled r/t laying in bed Eye contact: Poor Behavior: Cooperative, fatigued, anxious, and isolative Speech: minimal Mood: tired Affect: flat Thought process: CADEN Thought Content: CADEN Cognition: A&O X3 (not to reason here) Insight: Poor Judgment: Poor Interventions PRN's used: NA Therapeutic interventions: Introduced self and established rapport, maintained a safe and therapeutic environment, ensured contract for safety, provided clear and simple instruction, encouraged participation on the unit, monitored behaviors and need for intervention, and maintained Q 15min safety checks. Restraints/seclusion/emergency medication: N/A Justification of Continued Inpatient Treatment: Pt. requires medication adjustments and a safe and supportive environment.
[2021-05-03 08:00] VITALS: BP 109/53
[2021-05-03] MEDS: nicotine 14mg patch - 24hr TD SCH (08:00)
[2021-05-03 08:27] VITALS: BP 109/53
[2021-05-03] MEDS: LORazepam 1 MG tablet PO PRN ×2 (10:23→16:57)
[2021-05-03] MEDS: OLANZAPINE 5 MG TABLET PO PRN (11:11)
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
[2021-05-03] MEDS: acetaminophen 325mg tablet PO PRN (15:04)
[2021-05-03] MEDS: ferrous sulfate 325mg tablet PO SCH (16:58)
[2021-05-03] MEDS: ascorbic acid 500mg tablet PO SCH (16:58)
[2021-05-03 19:45] VITALS: BP 122/72
[2021-05-03] MEDS: methyl salicylate/menthol cream 57gm TP SCH (20:06)
[2021-05-03] MEDS: OLANZapine 2.5MG tablet PO SCH (20:06)
--- NOTE | 2021-05-04 00:21 | NUR ---
Nursing Progress Note Legal hold: 5250 Client on involuntary status for GD Report received from RN with use of SBAR Why they are here: Client placed on 5150 hold as result of mental health disorder. She stated, "if I leave here, I'm going to on way or another, or I'll just run into the street. Assessment What has happened this shift: Pt up in rec room watching a movie at start of shift. Pt pleasant and cooperative denied all mental health symptoms. Watched the movie took all meds and went to bed. Pt pleasant and cooperative. At times she mumbles and is hard to understand. SI/HI: Denies A/VH: Denies Sleep: asleep at this time ADL's: Independent Group attendance: No Were Meds taken: Yes Any med S/E: None observed or reported Mental Status Exam Appearance: Casual in scrubs Eye contact: Good Behavior: Pleasant cooperative Speech: Mumbles at times Mood: Depressed Affect: Congruent Thought process: Linear Thought Content: Circumstantial Cognition: A/O X 3 Insight: Fair Judgment: Poor Interventions PRN's used: none Therapeutic interventions: 1:1 assessment, therapeutic communication, active listening, medication administration/education/monitoring, provided simple, clear directions, behavior monitoring and intervention; frequent reality orientation, distraction, and redirection, positive reinforcement, and Q 15 minute safety checks. Restraints/seclusion/emergency medication: None Justification of Continued Inpatient Treatment: Patient will need medication adjustment and monitoring in a safe and therapeutic environment.
[2021-05-04] MEDS: ferrous sulfate 325mg tablet PO SCH ×3 (07:52→17:06)
[2021-05-04] MEDS: methyl salicylate/menthol cream 57gm TP SCH ×3 (07:53→20:11)
[2021-05-04] MEDS: ascorbic acid 500mg tablet PO SCH ×3 (07:53→17:07)
[2021-05-04 08:00] VITALS: BP 118/76
[2021-05-04] MEDS: nicotine 14mg patch - 24hr TD SCH (08:00)
[2021-05-04] MEDS: OLANZAPINE 5 MG TABLET PO PRN (09:53)
[2021-05-04] MEDS: LORazepam 1 MG tablet PO PRN ×2 (10:28→22:01)
[2021-05-04] MEDS ORDERED: olanzapine 10mg tablet PO SCH (12:00)
--- NOTE | 2021-05-04 17:20 | NUR ---
Nursing Progress Note: Beverly Diehl Legal hold: 5250 Client on involuntary status for GD Report received from RN with use of SBAR Why they are here: Client placed on 5150 hold as result of mental health disorder. She stated, "if I leave here, I'm going to on way or another, or I'll just run into the street. Assessment What has happened this shift: Received pt. sleeping in her room, woke her for medication and 1:1 assessment completed at the bedside. Pt. 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 She states I dont know where Ill go when I leave here. Pt. ate breakfast in the main dining room with cohorts, but presents agitated and isolates to self. Pt. was OOB after her meal and requested medication for anxiety, curriculum writer found pt. to be emotionally labile and PRN Zyprexia was given: 30 min later, pt. requested something for her nerves as the Zyprexia was not effective. Pt. remains emotionally labile, and teary eyed, PRN Ativan given. Pt. refused to attend group this morning. Weekly weight completed 84.9kg. SI/HI: Denies A/VH: Denies Sleep: Napped X1 ADL's: Independent Group attendance: No Were Meds taken: Yes Any med S/E: None observed or reported Mental Status Exam Appearance: Casual in scrubs Eye contact: Good Behavior: Depressed, tearful Speech: Rapid Mood: Depressed Affect: Congruent with mood Thought process: Linear Thought Content: Getting in a program Cognition: A/O X 3 Insight: Fair Judgment: Poor Interventions PRN's used: Ativan, Zyprexa Therapeutic interventions: 1:1 assessment, therapeutic communication, active listening, medication administration/education/monitoring, provided simple, clear directions, behavior monitoring and intervention; frequent reality orientation, distraction, and redirection, positive reinforcement, and Q 15 minute safety checks. Restraints/seclusion/emergency medication: None Justification of Continued Inpatient Treatment: Patient will need medication adjustment and monitoring in a safe and therapeutic environment.
[2021-05-04 19:20] VITALS: BP 113/73
[2021-05-04] MEDS: OLANZapine 2.5MG tablet PO SCH (20:09)
--- NOTE | 2021-05-05 00:02 | NUR ---
Nursing Progress Note Legal hold: 5250 Client on involuntary status for GD Report received from RN with use of SBAR Why they are here: Client placed on 5150 hold as result of mental health disorder. She stated, "if I leave here, I'm going to on way or another, or I'll just run into the street. Assessment What has happened this shift: Pt sitting in room awake at start of shift. Pt isolated to room all shift. Pt describes her mood as "depressed" denies SI or A/V/H. Pt verbalized anxiety about where she will go at discharge. "I am hoping to go to [facility]" Pt is guarded and evasive when talking about meth use. Pt minimized seriousness of meth use and blamed her daughter for CPS taking her nephew. The pt can not explain why the daughter who also lost her children to CPS had the nephew. She became tearful when talking about nephew. SI/HI: Denies A/VH: Denies Sleep: asleep at this time ADL's: Independent Group attendance: No Were Meds taken: Yes Any med S/E: None observed or reported Mental Status Exam Appearance: Casual in scrubs Eye contact: Good Behavior: cooperative Speech: Mumbles at times Mood: Depressed Affect: Congruent Thought process: Tangential guarded Thought Content: Anxious about discharge Cognition: A/O X 3 Insight: Fair Judgment: Poor Interventions PRN's used: MOM Therapeutic interventions: 1:1 assessment, therapeutic communication, active listening, medication administration/education/monitoring, provided simple, clear directions, behavior monitoring and intervention; frequent reality orientation, distraction, and redirection, positive reinforcement, and Q 15 minute safety checks. Restraints/seclusion/emergency medication: None Justification of Continued Inpatient Treatment: Patient will need medication adjustment and monitoring in a safe and therapeutic environment.
[2021-05-05 08:00] VITALS: BP 119/65
[2021-05-05] MEDS: nicotine 14mg patch - 24hr TD SCH (08:00)
[2021-05-05] MEDS: ascorbic acid 500mg tablet PO SCH ×3 (08:55→17:41)
[2021-05-05] MEDS: ferrous sulfate 325mg tablet PO SCH ×3 (08:55→17:41)
[2021-05-05] MEDS: methyl salicylate/menthol cream 57gm TP SCH ×3 (08:56→20:06)
[2021-05-05] MEDS: LORazepam 1 MG tablet PO PRN ×2 (09:36→15:26)
--- NOTE | 2021-05-05 10:47 | NUR ---
Pt. reported feeling shaky and slightly sweaty, blood sugar was taken and was 69. Juice and a protein snack was provided, and pt's BS was endorsed to Dr. Chávez. No new orders obtained. Pt's BS was rechecked after fifteen minutes and was 151. Will continue to monitor.
[2021-05-05 11:39] LABS: CLARITY,URINE CLEAR (Clear); COLOR,URINE YELLOW (Yellow); GLUCOSE, URINE NEGATIVE (Neg); KETONES,URINE TRACE mg/dl (Neg); LEUKOCYTE ESTERASE ,URINE NEGATIVE (Neg); NITRITES, URINE NEGATIVE (Neg); OCCULT BLOOD,URINE NEGATIVE (Neg); PH,URINE 5.5 (4.8-8.0); PROTEIN,URINE NEGATIVE (Neg); UROBILINOGEN,URINE 0.2 E.U/dL (0.2-1.0)
[2021-05-05 11:42] LABS: UA COLLECTION TYPE CLN CATCH MIDSTREAM
--- NOTE | 2021-05-05 11:48 | NUR ---
Ordered urine analysis collected and sent to lab, results WNL and no culture indicated at this time.
[2021-05-05] MEDS: OLANZapine 2.5MG tablet PO SCH ×2 (13:03→20:05)
--- NOTE | 2021-05-05 14:00 | NUR ---
CM Presenting Issues: Per clt's RN, clt is requesting support to access inpatient SUDs treatment upon d/c. Interventions: Clinician met w/pt & utilized MT strategies to engage her in discussion of inpatient substance use treatment. Per discussion, pt agreed to call [facility] and start the process to access inpt SUDs treatment @ [facility]. Pt reports that [facility] will hold a bed for her if she is to d/c this week, but she will need call back by 3PM to confirm her d/c date. Clinician had t/c w/ Sharona Rodriguez, Lacquer Shader @ [facility] who confirmed that if pt can d/c this week they would hold a bed for her. Pt will need 30-days meds, medical clearance and f/u appointments scheduled. Clinician notified attending physician. Plan: Clinician will f/u w/pt, [facility] & attending physician. Lashay Harry LCSW Addendum: 05/05/21 at 1406 by Lashay Harry SS Amended: Links added.
--- NOTE | 2021-05-05 17:47 | NUR ---
Group Art Tx. Continued: Patient engaged in her first art therapy group. She was able to follow all directives, completing both her drawing and journal writing. Patients' focus was surrounding a current issues re: the loss of her son, who was in custody etc. Patient was tearful throughout the session. She asked this therapist to read her journaling (as part of the group process) as she was tearful , yet responsive to the process of listening to both her work and the work of her peers. *Please refer to Compliance Assurance for a complete review of the session. Valencia Hope, [id number], Art Therapist Addendum: 05/05/21 at 1751 by Valencia Hope SS Amended: Links added.
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
[2021-05-05 19:00] VITALS: BP 121/73
--- NOTE | 2021-05-06 05:25 | NUR ---
Nursing Progress Note: Legal hold: 5250 Client on involuntary status for DTS Report received from nurse with use of SBAR: TEODORA Roth Why are they here: Client placed on 5150 hold as result of mental health disorder. She stated, "if I leave here, I'm going to one way or another, or I'll just run into the street. Assessment What has happened this shift: Patient watching TV at the beginning of shift. Pleasant and cooperative with care; compliant with medication. Patient refused Bengay; reported that it is not Bengay and does not heat up as it should. Patient denies SI, HI, A/VH. Patient showered and participated in HS snack prior to bed; observed sleeping and does not appear to be having difficulty. S/I, H/I: Denies A/VH: Denies Sleep: Refer to sleep assessment ADL's: Independent Group attendance: NA Were meds taken: Yes Any med S/E: None observed or reported Mental Status Exam Appearance: Showered, neat and appropriately dressed in green unit attire Eye contact: Fair Behavior: Pleasant and cooperative, anxious, social Speech: Pressured and hyperverbal, difficult to understand at times Mood: Anxious Affect: Congruent Thought process: Disorganized Thought Content: Meeting needs Cognition: A&O X3 (not to reason here) Insight: Poor Judgment: Poor Interventions PRN's used: None Therapeutic interventions: Maintained a safe and therapeutic environment, ensured contract for safety, provided clear and simple instruction, encouraged participation on the unit, monitored behaviors and need for intervention, obtained ordered urine sample, and maintained Q 15min safety checks. Restraints/seclusion/emergency medication: N/A Justification of Continued Inpatient Treatment: Pt. continues to require a safe and supportive environment, she has been accepted at [facility] [email or web address].
[2021-05-06 07:00] VITALS: BP 137/78
[2021-05-06] MEDS: methyl salicylate/menthol cream 57gm TP SCH ×3 (08:00→20:26)
--- NOTE | 2021-05-06 08:04 | NUR ---
5250 [facility] FOR DTS
--- NOTE | 2021-05-06 08:20 | NUR ---
DCP Presenting Issues: Pt's currently on 5249, she's been in communication w/[facility] and was informed that they are holding a bed for her there. Per consultation w/attending physician, pt can be d/c tomorrow morning. Clinician met w/pt and engaged her in dcp activities, per session, pt will d/c to [facility] on , clinician will arrange transportation via [facility], will request physician to send meds order to [facility] this AM so they can be delivered later this afternoon or early tomorrow morning. Plan: Pt to d/c tomorrow morning. MARICRUZ KnoxW Addendum: 05/06/21 at 0828 by Lashay Harry SS Amended: Links added.
[2021-05-06] MEDS: mag hydrox/Alum hydrox/simeth 30ml oral suspension PO PRN ×2 (08:33→18:54)
[2021-05-06] MEDS: ascorbic acid 500mg tablet PO SCH ×4 (08:34→17:38)
[2021-05-06] MEDS: ferrous sulfate 325mg tablet PO SCH ×4 (08:34→17:38)
[2021-05-06] MEDS: nicotine 14mg patch - 24hr TD SCH (08:34)
[2021-05-06] MEDS: LORazepam 1 MG tablet PO PRN ×2 (09:56→21:11)
[2021-05-06] MEDS ORDERED: cetirizine 10mg tablet PO ONE (11:35)
[2021-05-06] MEDS: OLANZapine 2.5MG tablet PO SCH ×2 (12:01→20:22)
--- NOTE | 2021-05-06 15:38 | NUR ---
Nursing Progress Note: Legal hold: 5250 Client on involuntary status for DTS Report received from nurse with use of SBAR: TEODORA Ramos Why are they here: Client placed on 5150 hold as result of mental health disorder. She stated, "if I leave here, I'm going to one way or another, or I'll just run into the street. Assessment What has happened this shift: Received pt. sleeping at the beginning of the shift, she was awoken to attend breakfast in the Group Room, and afterwards returned to bed as is her routine. 1:1 was completed at bedside, pt. presents as restless and impulsive at times, she continues to perseverate on her desire to discharge. Pt's speech continues to be pressured and hyperverbal, and is difficult to understand at times, but she is able to make her needs known. Pt. continues to deny all MH s/s and no delusional statements were made. She again reports complaints regarding her roommate's hyper-verbalization and requested PRN Ativan. This medication was administered with effectiveness. Per social work therapist, pt. has been accepted at [facility], and she will discharge tomorrow. Pt. reported seasonal allergies, and exhibits s/s of watering eyes and nose, Dr. Chávez gave an order for Zyrtec, medication administered with effectiveness. Pt. refused her afternoon iron and vitamin C r/t an episode of nausea and vomiting (pt. reports she periodically has these episodes r/t a previous gastric bypass), crackers and broth provided with effectiveness. Will continue to monitor. S/I, H/I: Denies A/VH: Denies, does not appear internally preoccupied Sleep: Sleep hours are 8.5, and pt. naps intermittently during the shift ADL's: Requires some encouragement Group attendance: No Were meds taken: Yes Any med S/E: None Mental Status Exam Appearance: Hair and clothing disheveled r/t laying in bed Eye contact: Poor Behavior: Cooperative, fatigued, restless, and impulsive Speech: Pressured and hyperverbal, difficult to understand at times Mood: Restless Affect: Labile Thought process: Disorganized Thought Content: Perseveration on desire to discharge Cognition: A&O X3 (not to reason here) Insight: Poor Judgment: Poor Interventions PRN's used: Ativan X2 Therapeutic interventions: Maintained a safe and therapeutic environment, ensured contract for safety, provided clear and simple instruction, encouraged participation on the unit, monitored behaviors and need for intervention, obtained order for allergy medication, and maintained Q 15min safety checks. Restraints/seclusion/emergency medication: N/A Justification of Continued Inpatient Treatment: Pt. continues to require a safe and supportive environment, and medication adjustments. She has been accepted at [facility].
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
[2021-05-06 20:39] VITALS: BP 140/83
--- NOTE | 2021-05-07 04:01 | NUR ---
Nursing Progress Note: Legal hold: 5250 Client on involuntary status for DTS Report received from nurse with use of SBAR: TEODORA Roth Why are they here: Client placed on 5150 hold as result of mental health disorder. She stated, "if I leave here, I'm going to one way or another, or I'll just run into the street. Assessment What has happened this shift: Pt seen in the hallway at the start of shift, her mood is good and she is excited about her discharge to [facility]. Denies all psychotic symptoms at this time. Pt wanted to be in bed by 8pm due to discharge tomorrow. S/I, H/I: Denies A/VH: Denies Sleep: Slept well throughout the night ADL's: independent Group attendance: N/A Were meds taken: Yes Any med S/E: None Mental Status Exam Appearance: wearing green scrubs, hygiene and grooming fair Eye contact: Poor Behavior: appropriate Speech: remains slightly pressured in her speech Mood: good Affect: bright Thought process: WNL Thought Content: excited about discharge Cognition: A&O X4 Insight: Poor Judgment: Poor Interventions PRN's used: none Therapeutic interventions: Maintained a safe and therapeutic environment, ensured contract for safety, provided clear and simple instruction, encouraged participation on the unit, monitored behaviors and need for intervention, obtained order for allergy medication, and maintained Q 15min safety checks. Restraints/seclusion/emergency medication: N/A Justification of Continued Inpatient Treatment: Pt. continues to require a safe and supportive environment, and medication adjustments. She has been accepted at [facility].
[2021-05-07 07:54] VITALS: BP 101/74
[2021-05-07] MEDS: methyl salicylate/menthol cream 57gm TP SCH (08:00)
[2021-05-07] MEDS ORDERED: ASCO-10 PO (08:08)
[2021-05-07] MEDS ORDERED: NICO-631 TD (08:08)
[2021-05-07] MEDS ORDERED: CYAN-51 PO (08:08)
[2021-05-07] MEDS ORDERED: FER325T PO (08:08)
[2021-05-07] MEDS ORDERED: OLAN2.5T28 PO (08:08)
[2021-05-07] MEDS ORDERED: OLAN7.5T18 PO (08:08)
[2021-05-07] MEDS ORDERED: MULT-1085 PO (08:08)
--- NOTE | 2021-05-07 08:10 | NUR ---
Discharge Presenting Issues: Pt's scheduled to d/c this AM to go to [facility]. Interventions: Clinician met w/pt and reviewed dcp w/her, pt reports that she will call her dtr and have dtr pick her up and take her to the pharmacy to poultry picker her meds then dtr will take pt to [facility]. Plan: Pt to d/c this morning and go to [facility]. Lashay Harry LCSW Addendum: 05/07/21 at 0831 by Lashay Harry SS Amended: Links added.
[2021-05-07] MEDS: ferrous sulfate 325mg tablet PO SCH (08:29)
[2021-05-07] MEDS: ascorbic acid 500mg tablet PO SCH (08:29)
[2021-05-07] MEDS: nicotine 14mg patch - 24hr TD SCH (08:30)
[2021-05-07] MEDS ORDERED: FLUT16SP2 BOTHNARES (08:42)
[2021-05-07] MEDS ORDERED: CETI-91 PO (08:42)
[2021-05-07] MEDS ORDERED: cetirizine 10mg tablet PO ONE (08:45)
[2021-05-07] MEDS: LORazepam 1 MG tablet PO PRN (08:48)
--- NOTE | 2021-05-07 11:50 | NUR ---
NURSING DISCHARGE NOTE: Patient was discharged from unit [id number]. Pt was A&Ox4. Pt left with all personal belongings. Pt will make a follow up appointment with her PMD Bright Marks MD. Pt verbalized understanding to follow up as directed. Pt was picked up by [facility] hydraulic lift driver and transported to [facility].
== END 2021-05-07 11:50 | disposition home or self-care (01) | DRG 751 ==
LOC: ER 15:24 → ED HOLD 04-27 14:00 → ADULT MH 04-27 14:37
PROVIDERS: ADMIT Psychiatry & Neurology Psychiatry; ATTEND Psychiatry & Neurology Psychiatry
DX: F29 Unspecified psychosis not due to a substance or known physiological condition (principal); F22 Delusional disorders; F15.10 Other stimulant abuse, uncomplicated; F12.90 Cannabis use, unspecified, uncomplicated; D50.9 Iron deficiency anemia, unspecified; F17.210 Nicotine dependence, cigarettes, uncomplicated; Z20.822 Contact with and (suspected) exposure to COVID-19; J44.9 Chronic obstructive pulmonary disease, unspecified; Z90.49 Acquired absence of other specified parts of digestive tract; Z87.01 Personal history of pneumonia (recurrent); Z59.00 Homelessness unspecified; Z98.84 Bariatric surgery status
CPT/HCPCS: 36415; 80053; 80061; 80305; 80320; 81003; 82948; 83036; 84443; 85008; 85025; 87081; 87635; 99285; C9803; Q0163; Q0177